=== PATIENT | male | born 1940 | race Caucasian/White ===

== ENCOUNTER 2023-03-05 12:13 | Emergency (ER) | payer MEDICARE, SELFPAY ==
[2023-03-05 12:23] VITALS: BP 127/73
--- NOTE | 2023-03-05 13:49 | ED.GENMED ---
History of Present Illness
General
Chief Complaint: Back Pain
Source: patient and spouse
Time Seen by Provider: 03/05/23 13:19
Travel History
Have you had any contact with someone who has COVID-19?: No
Do you have any symptoms of coronavirus? Fever > 100 degrees, chills, cough, shortness of breath, sore throat, loss of taste or smell, muscle aches, or headache?: No
History of Present Illness
History of Present Illness:
This patient is an 82-year-old male presents emergency department accompanied by his with complaints of exacerbation of chronic neck and back pain. Patient had a fall over 10 years ago, requiring surgery on his neck and thoracic spine. Since
then, he has suffered from chronic pain, and has been unable to find a medication that relieves the pain. He does take Xanax for anxiety and Tylenol, but because he is on a DOAC anti-inflammatories are contraindicated. He has intractable
nausea/vomiting from opioids, and has not had success with Neurontin. He is due to see a landscape painter in about a week and a half. He had x-rays done last week but does not know the results. He denies associated fever, chills, chest
pain, dyspnea, recent falls or trauma, headache, dizziness, abdominal pain. He does have dysuria due to recent BCG. He also notes hematuria last week that has resolved. Patient states that the pain he is describing today is the same quality,
location, etc. as the pain that he has chronically had in his neck and mid back. There are no changes to this.
Past History
Past History
ED Past Medical History: HTN, Hypercholesterolemia, IDDM, Hypothyroidism, Psychiatric (chronic anxiety) and Other (TIA, ASD)
ED Past Surgical History: Bowel resection, Orthopedic (Back), Urological and Other (Hernia repair)
Patient has exhibited threatening behavior?: No
PSI?: No
Social History
Tobacco: Non-smoker
Alcohol: Occasional
Drug: None
Personal:
Living: with family
Employment: Employed (has own business.)
Family History
Family History: Other (noncontributory)
Phy Exam
Physical Exam
Physical Exam:
GENERAL: Alert , in no apparent distress
EYE: pupils equal and reactive, patient has a chronic bluish discoloration to his sclera
NECK: Supple, no significant adenopathy., .nods yes and no without hestitation, no midline ttp, no swelling.
ENT: o/p clr, mmm.
CARDIAC: Regular rate and rhythm .
LUNGS: Clear breath sounds bilaterally, no acute respiratory distress, no wheezes/rales/rhonchi
ABDOMEN: Soft, without focal tenderness, no r/g, no cvat
NEUROLOGICAL: Alert and oriented, no focal neuro deficits, motor 5 out of 5, sensory intact, negative SLR, 2+ patellar reflexes
SKIN: Warm and dry, skin intact.
MUSCULOSKELETAL: No edema, well perfused.
PSYCH: Normal and appropriate interaction.
BACK: no midline ttp, no percussion tenderness, no rash
Course
Vital Signs
Initial and Last Documented VS:
Initial Vital Signs
Temp Pulse Resp BP Pulse Ox
99.0 F 91 20 127/73 94
03/05/23 12:23 03/05/23 12:23 03/05/23 12:23 03/05/23 12:23 03/05/23 12:23
Last Documented Vital Signs
Temp Pulse Resp BP Pulse Ox
99.0 F 91 20 127/73 94
03/05/23 12:23 03/05/23 12:23 03/05/23 12:23 03/05/23 12:23 03/05/23 12:23
*Critical Care Note
Total Time (30-74mins, 75-104mins- exclusive of procedures): Not Applicable
Update Note
Update Note:
Patient presents to the Emergency Department with __back and neck pain
Number and Complexity of Problems Addressed at the Encounter
� Chronic conditions affecting care:
� Acute Exacerbation and/or Progression of Chronic Illness:
� Differential Diagnosis includes: But not limited to progression of typical chronic pain, musculoskeletal pain, infection, etc.
Amount and/or Complexity of Data to be Reviewed and Analyzed
� I performed an independent evaluation of and my interpretation is:
EKG:
CT: Patient declines
Xrays:
Laboratory Studies: Patient declines
Other:
� Review of other/old records reveals: X-rays from last week reviewed by me, include see-through L, no emergent acute findings noted
� Clinical information was obtained by an independent historian:
� Prescriptions/Medications Considered but not given:
� Further testing considered but not performed:
Risk of Complications and/or Morbidity or Mortality of Patient Management
� Social determinants of health affecting care:
� Discussion with other providers (PCP, Hospitalists, Consultants, etc):
� Escalation of care including admission/observation vs risk of discharge considered: Patient with worsening pain but otherwise stable without new findings. This is an exacerbation of his chronic pain and he offers no new
symptoms to suggest otherwise. There is no percussion tenderness, fever, sweats, neurological findings. Given patient on BCG, it is a rare potential complication to develop vertebral infection. Discussed with patient, I recommend a workup for
that here in the emergency department including labs, CAT scan, etc. He and his declined, states that they really just wanted to be sure that hardware was intact as seen on x-rays. I did clarify that x-rays would not rule out more worrisome
etiology such as infection and we would only be able to explore this potential diagnosis with further testing, he still declines, understands these risk, will return to the emergency department if he changes his mind. He has follow-up with a pain
specialist on the of this month and longstanding relationship with his PCP.
ED Attending Note
-
Portions of this chart may have been created with voice recognition software.� Occasional wrong word or��sound alike� substitutions may have occurred due to the inherent limitations of voice recognition software.
Discharge Plan
Departure
Patient Disposition: Home (Routine Discharge)
Date of Disposition: 03/05/23
Time of Disposition: 14:10
Patient with high blood pressure during this ER visit?: Yes
Condition: Good
Discharge Problem:
Back pain
Instructions: Neck pain, Back Pain, BLOOD PRESSURE
Prescriptions:
No Action
atorvastatin 40 mg Tablet
40 mg PO DAILY
repaglinide 2 mg Tablet
2 mg PO AC
alprazolam 1 mg Tablet
1 mg PO TID PRN (Reason: anxiety)
levothyroxine 75 mcg Tablet
75 mcg PO DAILY
lisinopril-hydrochlorothiazide 20-25 mg Tablet
1 tab PO DAILY
Hold Instructions: discuss restarting with your primary care doctor as your kidney function is improved but not yet at baseline
folic acid 1 mg Tablet
1 mg PO DAILY
minocycline 100 mg Tablet
100 mg PO BID
insulin glargine [Lantus Solostar U-100 Insulin] 100 unit/mL (3 mL) Insulin Pen
14 - 22 unit SC HS
Rx Instructions:
22 units
Xarelto 10 mg Tablet
10 mg PO MOWEFR
Rx Instructions:
patient is supposed to take this every day, but due to cost, they take it 3-4 times per week, 08/22/2022
ciprofloxacin HCl [Cipro] 500 mg tablet
500 mg PO BID 7 Days Qty: 14 0RF
alprazolam [Xanax] 1 mg tablet
0.5 mg PO BID PRN (Reason: anxiety) Qty: 7 0RF
Referrals:
Vadim Escobedo MD [Family Provider] -
Activity Restrictions/Additional Instructions:
PLEASE SEE YOUR DOCTORS AND FOLLOW-UP SCHEDULED. IF YOU DEVELOP INCREASING OR NEW PAIN, INCONTINENCE, NUMBNESS, TINGLING, FEVER, CHILLS, ABDOMINAL PAIN, DIFFICULTY WALKING OR STANDING, OR OTHER WORRISOME SIGNS, PLEASE RETURN TO THE ER
IMMEDIATELY.
[2023-03-05 14:24] VITALS: BP 122/87
== END 2023-03-05 14:25 | disposition home or self-care (01) ==
LOC: EMR 12:13
PROVIDERS: EMERGENCY PHYSICIAN Emergency Medicine; FAMILY PHYSICIAN Family Medicine
DX: M54.9 Dorsalgia, unspecified (principal); R30.0 Dysuria; M54.2 Cervicalgia; F41.9 Anxiety disorder, unspecified; G89.29 Other chronic pain; I10 Essential (primary) hypertension; E11.9 Type 2 diabetes mellitus without complications; Q21.10 Atrial septal defect, unspecified; E78.00 Pure hypercholesterolemia, unspecified; E03.9 Hypothyroidism, unspecified; Z86.73 Personal history of transient ischemic attack (TIA), and cerebral infarction without residual deficits; Z98.0 Intestinal bypass and anastomosis status; Z88.5 Allergy status to narcotic agent; Z88.2 Allergy status to sulfonamides
CPT/HCPCS: 99282